=== PATIENT | male | born 1970 | race Caucasian/White ===

== ENCOUNTER 2017-08-21 13:35 | Inpatient (IN) | payer OTHER ==
[~2017-08-21] VITALS: Ht 193 cm; Wt 88.0 kg
--- NOTE | ~2017-08-21 | EKG ---
[address] [address] ELECTROCARDIOGRAM REPORT Name: NEMESIO JIMENEZ Room #: 353-P [facility] IN M.R.#: [id number] Admission: 08/21/17 Attend Phys: Eloy Garza MD Discharge: Date of : 66 Report #: [id number] THIS REPORT FOR: //name// [facility] ED Test Date: 2017-08-21 Test Time: 14:26:17 Pat Name: NEMESIO JIMENEZ Department: Room: Gender: M Top Closer: edson : 1970 Requested By: Josse Haddad Order Number: [id number] MD: Fredy Sumner Measurements Intervals [place] Rate: 85 P: 70 OR: 154 QRS: 51 QRSD: 96 T: 48 QT: 395 QTc: 470 Interpretive Statements Sinus rhythm No previous ECG available for comparison Electronically Signed On 08-21-2017 22:24:03 CDT by Fredy Sumner [email or web address] <ELECTRONICALLY SIGNED> By: Fredy Sumner MD 08/21/17 2224 1426 1426 Fredy Sumner MD /EPI
--- NOTE | ~2017-08-21 | HC ---
[facility] [place] [address] CONSULTATION Name: NEMESIO JIMENEZ Room #: 353-P [facility] IN ..#: [id number] Admission: 08/21/17 Attend Phys: Eloy Garza MD Discharge: Date of : 66 Report #: [id number] THIS REPORT FOR: //name// CC: FAM unknown Eloy Garza DATE OF SERVICE: 08/22/2017 HISTORY OF PRESENT ILLNESS: This is a gentleman who has been admitted with relapse with respect to alcohol use disorder. He has also had more depression and anxiety. He relates that he has had thoughts of giving up and that he had no support whatsoever. He was feeling very hopeless and helpless. He was admitted on a 1:1 sitter. He has not had active suicidal thoughts or plans. He makes it pretty clear today that there is no suicidal intent or plan. He is quite depressed and fearful about his situation. He notes he was recently discharged from after a short inpatient psych stay. He feels he ended up in a psychiatric unit because of his level of intoxication and they misinterpreted his suicidal thinking. He left on Prozac, but did not tolerate this medication well. He went through an Ativan detoxification. He was supposed to go to [facility], but he notes that the last minute he did not follow through. PAST PSYCHIATRIC HISTORY: Lately, there has been trouble with depression and alcohol use disorder. His alcohol use has picked up significantly since breakup from his . It has contributed now to difficulties with relationships, employment and finances. The patient has never been on regular medicine for depression or anxiety. He does not have a history of suicide attempts. FAMILY HISTORY: Alcohol use disorder in a maternal grandfather and maternal uncle. PAST MEDICAL HISTORY: Secondary to alcohol use disorder. ALLERGIES: No known medication allergies. CURRENT MEDICATIONS: Ativan detox. MENTAL STATUS EXAMINATION: male, casually dressed, depressed, tremulous. Normal rate, rhythm of speech. He is articulate. No suicidal ideation, no homicidal ideation, no hallucinations, no delusions. Insight and judgment fair. SOCIAL HISTORY: He is . 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 He notes in his 20s and 30s, he was very focused on his job and there was social drinking, but no regular abuse. There was not functional alcohol use for underlying depression and anxiety. At times, lately, he had thrown himself into exercise and was active in triathlons and other [facility] [address] [address] CONSULTATION Name: NEMESIO JIMENEZ Room #: 353-P [facility].#: [id number] Admission: 08/21/17 Attend Phys: Eloy Garza MD Discharge: Date of : 66 Report #: [id number] distance endurance sporting events. DIAGNOSES: Alcohol use disorder, major depressive disorder, single episode, moderate. RECOMMENDATIONS: Continue with the lorazepam detoxification. I will order some gabapentin, which will help with alcohol craving and relapse prevention. I do not think he has a chronic anxiety disorder and so do not believe he needs an antidepressant like Prozac or Zoloft necessarily. I believe I prefer to wait until he is a bit further through the withdrawal process and then start Wellbutrin. I hope that he gets packet from case management so that he can look into [facility], [facility], [facility] or other sober living setting. By: 1430 1750 Jose Kuhn MD /nt
[2017-08-21 13:37] VITALS: BP 131/84
[2017-08-21] MEDS ORDERED: PROZAC20 MG PO (13:43)
[2017-08-21 14:09] LABS: ABSOLUTE NEUTROPHILS 2.1 thou/uL (1.4-8.2); BASOPHILS 1.1 % (0.0-2.0); EOSINOPHILS 0.5 % (0.0-3.0); HEMATOCRIT 40.8 % (42.0-52.0); LYMPHOCYTES 44.5 % (24.0-44.0); MCH 33.8 pg (26.0-34.0); MCHC 34.4 g/dL (28.0-37.0); MCV 98.3 fL (80.0-100.0); MONOCYTES 8.3 % (1.0-8.0); PLATELET COUNT 237 thou/uL (150-400); POLYS 45.6 % (36.0-66.0); RBC 4.15 mil/uL (4.50-6.00); RDW 12.7 % (10.5-14.5); WBC 4.6 thou/uL (4.0-11.0)
[2017-08-21 14:18] LABS: ANION GAP 14 mmol/L (7-16); BUN 2 mg/dL (7-18); CALCIUM 8.8 mg/dL (8.5-10.1); CHLORIDE 99 mmol/L (98-107); CO2 25 mmol/L (21-32); CREATININE 0.6 mg/dL (0.7-1.3); GLUCOSE 126 mg/dL (74-106); POTASSIUM 3.9 mmol/L (3.5-5.1); SODIUM 138 mmol/L (136-145)
[2017-08-21 14:23] LABS: ALBUMIN 3.9 g/dL (3.4-5.0); DIRECT BILIRUBIN 0.2 mg/dL (<0.1-0.3); SALICYLATE < 2.8 mg/dL (2.8-20.0); SGOT 143 U/L (15-37); SGPT 98 U/L (30-65); TOTAL BILIRUBIN 0.5 mg/dL (<0.1-1.0); TOTAL PROTEIN 7.3 g/dL (6.4-8.2)
[2017-08-21 16:10] LABS: URINE BILIRUBIN NEGATIVE (Negative); URINE BLOOD NEGATIVE (Negative); URINE CLARITY CLEAR; URINE COLOR YELLOW; URINE GLUCOSE-RANDOM* NEGATIVE (Negative); URINE KETONES 1+ (Negative); URINE LEUKOCYTES NEGATIVE (Negative); URINE NITRITE NEGATIVE (Negative); URINE PROTEIN (DIPSTICK) NEGATIVE (Negative); URINE UROBILINOGEN 0.2 E.U./dl (0.2-1.0)
[2017-08-21 16:22] LABS: AMP/METHAMP Negative (Negative); BARBITURATES Negative (Negative); BENZODIAZEPINES Negative (Negative); COCAINE Negative (Negative); METHADONE Negative (Negative); OPIATES Negative (Negative); PCP Negative (Negative)
[2017-08-21 19:09] VITALS: BP 120/75
[2017-08-21 19:19] VITALS: BP 120/75
[2017-08-21 23:44] VITALS: BP 123/80
[2017-08-22 03:50] VITALS: BP 130/50
[2017-08-22 05:07] LABS: GLYCOHEMOGLOBIN (HGB A1C) 6.7 % (4.8-5.6)
[2017-08-22 08:13] VITALS: BP 136/90
[2017-08-22 09:38] LABS: ALBUMIN 3.8 g/dL (3.4-5.0); CALCIUM 8.4 mg/dL (8.5-10.1); CREATININE 0.6 mg/dL (0.7-1.3); POTASSIUM 3.6 mmol/L (3.5-5.1); TOTAL BILIRUBIN 1.1 mg/dL (<0.1-1.0); TOTAL PROTEIN 6.5 g/dL (6.4-8.2)
[2017-08-22 15:30] VITALS: BP 133/92
[2017-08-22 19:15] VITALS: BP 133/91
[2017-08-23 04:10] VITALS: BP 128/89
[2017-08-23 04:47] LABS: ABSOLUTE NEUTROPHILS 2.3 thou/uL (1.4-8.2); BASOPHILS 0.6 % (0.0-2.0); EOSINOPHILS 1.6 % (0.0-3.0); HEMATOCRIT 39.7 % (42.0-52.0); HEMOGLOBIN 13.5 gm/dL (14.0-18.0); MCHC 33.9 g/dL (28.0-37.0); MCV 97.4 fL (80.0-100.0); MONOCYTES 7.6 % (1.0-8.0); POLYS 64.2 % (36.0-66.0); RBC 4.08 mil/uL (4.50-6.00); RDW 12.9 % (10.5-14.5); WBC 3.5 thou/uL (4.0-11.0)
[2017-08-23 04:49] LABS: PLATELET COUNT 158 thou/uL (150-400)
[2017-08-23 07:48] VITALS: BP 161/111
[2017-08-23 11:38] VITALS: BP 144/100
[2017-08-23 15:30] VITALS: BP 129/87
[2017-08-23 20:00] VITALS: BP 132/93
[2017-08-24 04:20] VITALS: BP 152/93
[2017-08-24 04:24] LABS: ALBUMIN 3.6 g/dL (3.4-5.0); CALCIUM 9.5 mg/dL (8.5-10.1); CREATININE 0.7 mg/dL (0.7-1.3); MAGNESIUM 1.5 mg/dL (1.8-2.4); POTASSIUM 3.8 mmol/L (3.5-5.1); TOTAL BILIRUBIN 0.7 mg/dL (<0.1-1.0); TOTAL PROTEIN 6.4 g/dL (6.4-8.2)
[2017-08-24 07:40] VITALS: BP 128/84
[2017-08-24 16:29] VITALS: BP 145/104
[2017-08-24 18:08] VITALS: BP 135/83
[2017-08-24 19:51] VITALS: BP 138/94
[2017-08-25 03:25] VITALS: BP 141/98
[2017-08-25 07:44] VITALS: BP 152/101
[2017-08-25] MEDS ORDERED: METFORMIN HCL500 MG PO (10:04)
[2017-08-25] MEDS ORDERED: VITAMIN B-12500 MCG PO (10:04)
[2017-08-25] MEDS ORDERED: NEURONTIN 300300 M1 PO (10:04)
[2017-08-25] MEDS ORDERED: PRENATAL COMPL1 EACH PO (10:04)
[2017-08-25] MEDS ORDERED: XANAX 0.5 MG0.5 MG PO (10:04)
[2017-08-25] MEDS ORDERED: VITAMIN B-1100 M2 PO (10:04)
[2017-08-25 10:24] VITALS: BP 152/101
[2017-08-25 11:25] VITALS: BP 124/93
== END 2017-08-25 13:40 | disposition home or self-care (01) | DRG 91 ==
LOC: ER 13:35 → EROBS 17:17 → 3W 17:17 → EROBS 18:51 → 3W 18:54 → ENTRNSPT 08-25 13:27 → EDTRNSPTSTS 08-25 13:34 → 3W 08-25 13:40
PROVIDERS: Internal Medicine; Nurse Practitioner; Physician Assistant
DX: R25.1 Tremor, unspecified (principal); E43 Unspecified severe protein-calorie malnutrition; F32.1 Major depressive disorder, single episode, moderate; R45.851 Suicidal ideations; F10.239 Alcohol dependence with withdrawal, unspecified; J30.9 Allergic rhinitis, unspecified; E11.9 Type 2 diabetes mellitus without complications; Y90.9 Presence of alcohol in blood, level not specified; F10.229 Alcohol dependence with intoxication, unspecified; F41.9 Anxiety disorder, unspecified; Z81.1 Family history of alcohol abuse and dependence; Z68.23 Body mass index [BMI] 23.0-23.9, adult; Z79.899 Other long term (current) drug therapy
CPT/HCPCS: 10879